=== PATIENT | male | born 1950 | race Caucasian/White ===

== ENCOUNTER 2024-02-16 06:17 | Emergency (ER) | payer OTHER ==
[2024-02-16 06:44] VITALS: BP 196/109
[2024-02-16 07:00] VITALS: BP 165/102
[2024-02-16] MEDS ORDERED: OMNICEF300 M1 PO (07:01)
[2024-02-16] MEDS ORDERED: CLINDAMYCIN300 M1 PO (07:01)
[2024-02-16] MEDS ORDERED: LIDOcaine HCl 1% (Local Anesth.) 20 ML VIAL IM STA (07:02)
[2024-02-16] MEDS ORDERED: cefTRIAXone SODIUM 1 GM/VIAL SDV IM ONE (07:05)
== END 2024-02-16 07:15 | disposition left against medical advice (07) | DRG 603 ==
LOC: ED 06:17
DX: L03.114 Cellulitis of left upper limb (principal); I10 Essential (primary) hypertension; J44.9 Chronic obstructive pulmonary disease, unspecified; Z53.29 Procedure and treatment not carried out because of patient's decision for other reasons